=== PATIENT | female | born 1955 | race Caucasian/White ===

== ENCOUNTER 2021-05-05 11:43 | Outpatient (CLI) | payer OTHER | END 2021-05-05 11:44 | disposition home or self-care (01) | LOC: BICRAD 11:43 | PROVIDERS: ATTEND Family Medicine | DX: R05.9 Cough, unspecified (principal) | CPT/HCPCS: 71046 ==

== ENCOUNTER 2021-05-19 08:06 | Outpatient (CLI) | payer OTHER | END 2021-05-19 08:07 | disposition home or self-care (01) | LOC: BICULT 08:06 | PROVIDERS: ATTEND Family Medicine | DX: Z12.31 Encounter for screening mammogram for malignant neoplasm of breast (principal); R10.10 Upper abdominal pain, unspecified; N64.89 Other specified disorders of breast; R93.2 Abnormal findings on diagnostic imaging of liver and biliary tract; Z80.3 Family history of malignant neoplasm of breast | CPT/HCPCS: 76705; 77063; 77067 ==

== ENCOUNTER 2021-05-25 09:03 | Outpatient (CLI) | payer OTHER | END 2021-05-25 09:04 | disposition home or self-care (01) | LOC: BICMAMMO 09:03 | PROVIDERS: ATTEND Family Medicine | DX: R92.2 Inconclusive mammogram (principal) | CPT/HCPCS: G0279 ==

== ENCOUNTER 2022-09-24 09:57 | Outpatient (CLI) | payer OTHER | END 2022-09-24 09:58 | disposition home or self-care (01) | LOC: BICMAMMO 09:57 | PROVIDERS: ATTEND Family Medicine | DX: Z87.898 Personal history of other specified conditions (principal) | CPT/HCPCS: 77066; G0279 ==